=== PATIENT | male | born 1960 | race Caucasian/White ===

== ENCOUNTER 2018-11-22 19:57 | Emergency (ER) | payer OTHER, MEDICAID ==
[~2018-11-22] VITALS: Ht 180.3 cm; Wt 85.7 kg
[2018-11-22 20:01] VITALS: BP_SYST 119
[2018-11-22] MEDS ORDERED: ONDANSETRON HCL 4 MG/2 ML VIAL IVP ONE (20:30)
[2018-11-22] MEDS ORDERED: MORPHINE 2 MG/ML INJ. SYRINGE IVP ONE (20:30)
[2018-11-22] MEDS ORDERED: VALP500S4 PO (21:03)
[2018-11-22] MEDS ORDERED: CLON0.5T12 PO (21:03)
[2018-11-22] MEDS ORDERED: DORZ10DR13 BOTH EYES (21:03)
[2018-11-22] MEDS ORDERED: BENZ1TAB8 PO (21:03)
[2018-11-22 21:05] LABS: CALCIUM 9.9 mg/dL (8.4-11.0); CREATININE 0.97 mg/dL (0.55-1.30); POTASSIUM 4.4 mmol/L (3.5-5.1)
[2018-11-22] MEDS ORDERED: OXYB5TAB11 PO (21:06)
[2018-11-22] MEDS ORDERED: TRI48 PO (21:06)
[2018-11-22] MEDS ORDERED: TAMS-11 PO (21:06)
[2018-11-22 21:10] LABS: PROTHROMBIN TIME 10.3 SECS (9.5-12.5)
[2018-11-22 21:11] LABS: ALBUMIN 2.8 g/dL (3.4-4.8); BASOPHILS % (AUTO) 0.4 % (0.0-2.0); EOSINOPHILS # (AUTO) 0.3 K/uL (0.0-0.4); EOSINOPHILS % (AUTO) 3.1 % (0.0-4.0); HEMATOCRIT 31.8 % (36-54); HEMOGLOBIN 10.9 g/dL (14.0-18.0); LYMPHOCYTES # (AUTO) 2.6 K/uL (1.0-5.5); LYMPHOCYTES % (AUTO) 29.8 % (20.5-51.5); MEAN CORPUSCULAR HEMOGLOBIN 30 pg (27-31); MEAN CORPUSCULAR HGB CONC 34 % (32-36); MEAN CORPUSCULAR VOLUME 87 fL (79.0-98.0); MONOCYTES # (AUTO) 0.8 K/uL (0.0-1.0); MONOCYTES % (AUTO) 9.4 % (1.7-9.3); NEUTROPHILS % (AUTO) 57.3 % (40.0-70.0); PLATELET COUNT (AUTO) 459 K/uL (130-430); RED BLOOD CELL COUNT(AUTO) 3.66 MIL/uL (4.2-6.2); RED CELL DISTRIBUTION WIDTH 15.5 % (9.0-15.0); TOTAL BILIRUBIN 0.2 mg/dL (0.0-1.0); WHITE BLOOD COUNT (AUTO) 8.7 K/uL (4.8-10.8)
[2018-11-22] MEDS ORDERED: CLOZ100T2 PO (21:14)
[2018-11-22] MEDS ORDERED: RANI-362 PO (21:14)
[2018-11-22] MEDS ORDERED: ASPI-1153 PO (21:14)
[2018-11-22] MEDS ORDERED: BUSP5TAB3 PO (21:14)
[2018-11-22] MEDS ORDERED: MULT-1189 PO (21:14)
[2018-11-22] MEDS ORDERED: OLAN5TAB26 PO (21:14)
[2018-11-22] MEDS ORDERED: LISI-209 PO (21:14)
[2018-11-22] MEDS ORDERED: LACT10SO6 PO (21:14)
[2018-11-22] MEDS ORDERED: LEVO150T PO (21:14)
[2018-11-23 00:10] VITALS: BP_SYST 119
== END 2018-11-23 00:10 | disposition home or self-care (01) ==
LOC: SED 19:57
DX: R22.42 Localized swelling, mass and lump, left lower limb (principal); Z79.899 Other long term (current) drug therapy
CPT/HCPCS: 36415; 71045; 73590; 73620; 80053; 82550; 83880; 84484; 85025; 85610; 85730; 93005; 93970; 96374; 96375; 99284; J2270; J2405

== ENCOUNTER 2019-04-26 21:25 | Inpatient (IN) | payer OTHER, MEDICAID ==
[~2019-04-26] VITALS: Ht 179.1 cm; Wt 92.1 kg
[~2019-04-26 21:25] MED LIST: ASPI-1153 PO; BENZ1TAB8 PO; BUSP5TAB3 PO; CLON0.5T12 PO; CLOZ100T2 PO; DORZ10DR13 BOTH EYES; LACT10SO6 PO; LEVO150T PO; LISI-209 PO; MULT-1189 PO; OLAN5TAB26 PO; OXYB5TAB11 PO; RANI-362 PO; TAMS-11 PO; TRI48 PO; VALP500S4 PO
[2019-04-26 21:30] VITALS: BP_SYST 130
[2019-04-26 22:33] LABS: CALCIUM 9.2 mg/dL (8.4-11.0); CREATININE 1.32 mg/dL (0.55-1.30); POTASSIUM 4.6 mmol/L (3.5-5.1)
[2019-04-26 22:36] LABS: BASOPHILS % (AUTO) 0.7 % (0.0-2.0); EOSINOPHILS # (AUTO) 0.3 K/uL (0.0-0.4); EOSINOPHILS % (AUTO) 4.8 % (0.0-4.0); HEMATOCRIT 27.9 % (36-54); HEMOGLOBIN 9.1 g/dL (14.0-18.0); LYMPHOCYTES % (AUTO) 29.5 % (20.5-51.5); MEAN CORPUSCULAR HEMOGLOBIN 27 pg (27-31); MEAN CORPUSCULAR HGB CONC 33 % (32-36); MEAN CORPUSCULAR VOLUME 83 fL (79.0-98.0); MONOCYTES # (AUTO) 0.7 K/uL (0.0-1.0); NEUTROPHILS # (AUTO) 3.7 K/uL (1.8-7.7); PLATELET COUNT (AUTO) 375 K/uL (130-430); RED BLOOD CELL COUNT(AUTO) 3.37 MIL/uL (4.2-6.2); WHITE BLOOD COUNT (AUTO) 6.8 K/uL (4.8-10.8)
[2019-04-26 22:38] LABS: INR 1.1 (0.80-1.20)
[2019-04-26 22:44] LABS: ALBUMIN 3.1 g/dL (3.4-4.8); TOTAL BILIRUBIN 0.2 mg/dL (0.0-1.0)
[2019-04-27] MEDS ORDERED: ACETAMINOPHEN 500 MG TABLET PO ONE (01:00)
[2019-04-27] MEDS: PANTOPRAZOLE SODIUM 40 MG TAB PO SCH ×2 (05:21→08:54)
[2019-04-27] MEDS: FUROSEMIDE 20 MG/2 ML VIAL IVP SCH ×3 (05:22→21:06)
[2019-04-27 06:22] VITALS: BP_SYST 127
[2019-04-27 07:59] VITALS: BP_SYST 120
[2019-04-27] MEDS: cefTRIAXone 1 GM in D5W 50 ML IV SCH (08:53)
[2019-04-27 12:38] VITALS: BP_SYST 115
[2019-04-27] MEDS ORDERED: OXYBUTYNIN CHLORIDE 5 MG TABLET PO ONE (13:30)
[2019-04-27] MEDS ORDERED: ASPIRIN 81 MG TABLET(ECOTRIN) PO ONE (13:30)
[2019-04-27] MEDS ORDERED: HYDROcodone/ACETAMIN 5-325 MG TAB (NORCO/ VICODIN) PO PRN (13:30)
[2019-04-27] MEDS ORDERED: busPIRone HCL 5 MG TABLET PO PRN (13:30)
[2019-04-27] MEDS ORDERED: LEVOTHYROXINE SODIUM 0.15 MG TABLET PO ONE (13:30)
[2019-04-27] MEDS ORDERED: NON-FORMULARY MEDICATION (Ranitidine Hcl (Acid Reducer 150) 1 TAB) PO SCH (13:30)
[2019-04-27] MEDS ORDERED: FAMOTIDINE 20 MG TABLET PO ONE (14:15)
[2019-04-27] MEDS ORDERED: LISINOPRIL 5 MG TABLET PO ONE (14:19)
[2019-04-27] MEDS: HYDROcodone/ACETAMIN 5-325 MG TAB (NORCO/ VICODIN) PO PRN (14:43)
[2019-04-27 17:35] VITALS: BP_SYST 127
[2019-04-27] MEDS ORDERED: MAGNESIUM CITRATE 300 ML ORAL SOLUTION PO ONE (19:00)
[2019-04-27 20:00] VITALS: BP_SYST 135
[2019-04-27] MEDS ORDERED: BISACODYL 5 MG TABLET.DR (DULCOLAX) PO ONE (20:00)
[2019-04-27] MEDS ORDERED: GOLYTELY / COLYTE SOLUTION 4 LITERS PO ONE (20:00)
[2019-04-27] MEDS: CLOZARIL 100 MG PO SCH (21:00)
[2019-04-27] MEDS ORDERED: CLOZAPINE 400 MG PO SCH (21:00)
[2019-04-27] MEDS ORDERED: OLANZapine 5 MG TABLET PO SCH (21:00)
[2019-04-27] MEDS: FENOFIBRATE NANOCRYSTALLIZED 48 MG TABLET (TRICOR) PO SCH (21:04)
[2019-04-27] MEDS: DIVALPROEX SODIUM 500 MG TABLET( DEPAKOTE) PO SCH (21:04)
[2019-04-27] MEDS: BENZTROPINE MESYLATE 1 MG TABLET PO SCH (21:05)
[2019-04-27] MEDS: TAMSULOSIN HCL 0.4 MG CAP PO SCH (21:05)
[2019-04-27] MEDS: clonazePAM 0.5 MG TABLET PO SCH (21:05)
[2019-04-27] MEDS: DORZOLAMIDE HCL/TIMOLOL MAL. 10 ML EYE DROPS (COSOPT) BOTH EYES SCH (21:06)
[2019-04-28 03:34] VITALS: BP_SYST 121
[2019-04-28] MEDS: LEVOTHYROXINE SODIUM 0.15 MG TABLET PO SCH (06:25)
[2019-04-28 07:16] LABS: BASOPHILS % (AUTO) 0.4 % (0.0-2.0); EOSINOPHILS # (AUTO) 0.2 K/uL (0.0-0.4); EOSINOPHILS % (AUTO) 2.2 % (0.0-4.0); HEMATOCRIT 30.9 % (36-54); LYMPHOCYTES # (AUTO) 1.6 K/uL (1.0-5.5); LYMPHOCYTES % (AUTO) 17.2 % (20.5-51.5); MEAN CORPUSCULAR HEMOGLOBIN 27 pg (27-31); MEAN CORPUSCULAR HGB CONC 33 % (32-36); MEAN CORPUSCULAR VOLUME 82 fL (79.0-98.0); MONOCYTES % (AUTO) 11.2 % (1.7-9.3); NEUTROPHILS # (AUTO) 6.3 K/uL (1.8-7.7); PLATELET COUNT (AUTO) 549 K/uL (130-430); RED BLOOD CELL COUNT(AUTO) 3.79 MIL/uL (4.2-6.2); RED CELL DISTRIBUTION WIDTH 15.4 % (9.0-15.0); WHITE BLOOD COUNT (AUTO) 9.1 K/uL (4.8-10.8)
[2019-04-28 07:27] LABS: PROTHROMBIN TIME 10.4 SECS (9.5-12.5)
[2019-04-28 07:44] LABS: ALBUMIN 3.1 g/dL (3.4-4.8); CALCIUM 9.2 mg/dL (8.4-11.0); CREATININE 1.06 mg/dL (0.55-1.30); POTASSIUM 4.7 mmol/L (3.5-5.1); TOTAL BILIRUBIN 0.3 mg/dL (0.0-1.0)
[2019-04-28 08:00] VITALS: BP_SYST 134
[2019-04-28] MEDS ORDERED: SIMETHICONE 40 MG/0.6 ML ML ONE (08:20)
[2019-04-28] MEDS: MEPERIDINE HCL/PF 100 MG/ML AMP ONE ×2 (08:21→09:47)
[2019-04-28] MEDS: MIDAZOLAM HCL 5 MG/5 ML VIAL ONE ×6 (08:21→10:06)
[2019-04-28] MEDS: cefTRIAXone 1 GM in D5W 50 ML IV SCH (08:48)
[2019-04-28] MEDS: DORZOLAMIDE HCL/TIMOLOL MAL. 10 ML EYE DROPS (COSOPT) BOTH EYES SCH ×2 (08:48→22:04)
[2019-04-28] MEDS: FUROSEMIDE 20 MG/2 ML VIAL IVP SCH (08:49)
[2019-04-28] MEDS: BENZTROPINE MESYLATE 1 MG TABLET PO SCH ×2 (09:00→22:00)
[2019-04-28] MEDS: FAMOTIDINE 20 MG TABLET PO SCH (09:00)
[2019-04-28] MEDS: LISINOPRIL 5 MG TABLET PO SCH (09:00)
[2019-04-28] MEDS: MULTIVITS,CA,MINERALS/IRON/FA 1 TABLET PO SCH (09:00)
[2019-04-28] MEDS: LACTULOSE 20 GM/30 ML UDC PO SCH (09:00)
[2019-04-28] MEDS: PANTOPRAZOLE SODIUM 40 MG TAB PO SCH (09:00)
[2019-04-28] MEDS: OXYBUTYNIN CHLORIDE 5 MG TABLET PO SCH (09:00)
[2019-04-28] MEDS: clonazePAM 0.5 MG TABLET PO SCH ×2 (09:00→22:00)
[2019-04-28] MEDS: DIVALPROEX SODIUM 500 MG TABLET( DEPAKOTE) PO SCH ×2 (09:00→21:59)
[2019-04-28] MEDS: ASPIRIN 81 MG TABLET(ECOTRIN) PO SCH (09:00)
[2019-04-28 12:00] VITALS: BP_SYST 124
[2019-04-28] MEDS: HYDROcodone/ACETAMIN 5-325 MG TAB (NORCO/ VICODIN) PO PRN (15:51)
[2019-04-28 16:00] VITALS: BP_SYST 125
[2019-04-28] MEDS ORDERED: BISACODYL 5 MG TABLET.DR (DULCOLAX) PO ONE (17:00)
[2019-04-28] MEDS ORDERED: GOLYTELY / COLYTE SOLUTION 4 LITERS PO ONE (18:00)
[2019-04-28 20:00] VITALS: BP_SYST 148
[2019-04-28] MEDS: CLOZARIL 100 MG PO SCH (21:00)
[2019-04-28] MEDS: TAMSULOSIN HCL 0.4 MG CAP PO SCH (21:59)
[2019-04-28] MEDS: FENOFIBRATE NANOCRYSTALLIZED 48 MG TABLET (TRICOR) PO SCH (21:59)
[2019-04-28] MEDS: OLANZapine 5 MG TABLET PO SCH (22:00)
[2019-04-29] MEDS: HYDROcodone/ACETAMIN 5-325 MG TAB (NORCO/ VICODIN) PO PRN ×2 (00:14→16:14)
[2019-04-29 00:33] VITALS: BP_SYST 138
[2019-04-29] MEDS: LEVOTHYROXINE SODIUM 0.15 MG TABLET PO SCH (06:16)
[2019-04-29 07:12] LABS: BASOPHILS % (AUTO) 0.5 % (0.0-2.0); EOSINOPHILS # (AUTO) 0.4 K/uL (0.0-0.4); EOSINOPHILS % (AUTO) 4.4 % (0.0-4.0); HEMATOCRIT 30.1 % (36-54); HEMOGLOBIN 9.6 g/dL (14.0-18.0); LYMPHOCYTES # (AUTO) 2.3 K/uL (1.0-5.5); LYMPHOCYTES % (AUTO) 26.4 % (20.5-51.5); MEAN CORPUSCULAR HEMOGLOBIN 26 pg (27-31); MEAN CORPUSCULAR HGB CONC 32 % (32-36); MEAN CORPUSCULAR VOLUME 82 fL (79.0-98.0); MONOCYTES # (AUTO) 1.3 K/uL (0.0-1.0); MONOCYTES % (AUTO) 15.1 % (1.7-9.3); NEUTROPHILS # (AUTO) 4.7 K/uL (1.8-7.7); NEUTROPHILS % (AUTO) 53.6 % (40.0-70.0); PLATELET COUNT (AUTO) 479 K/uL (130-430); RED BLOOD CELL COUNT(AUTO) 3.68 MIL/uL (4.2-6.2); RED CELL DISTRIBUTION WIDTH 15.7 % (9.0-15.0); WHITE BLOOD COUNT (AUTO) 8.7 K/uL (4.8-10.8)
[2019-04-29 07:21] LABS: CALCIUM 8.9 mg/dL (8.4-11.0); CREATININE 0.95 mg/dL (0.55-1.30); POTASSIUM 3.8 mmol/L (3.5-5.1)
[2019-04-29 08:00] VITALS: BP_SYST 135
[2019-04-29] MEDS: OXYBUTYNIN CHLORIDE 5 MG TABLET PO SCH (08:10)
[2019-04-29] MEDS: DIVALPROEX SODIUM 500 MG TABLET( DEPAKOTE) PO SCH ×2 (08:10→20:04)
[2019-04-29] MEDS: BENZTROPINE MESYLATE 1 MG TABLET PO SCH ×2 (08:10→20:04)
[2019-04-29] MEDS: LACTULOSE 20 GM/30 ML UDC PO SCH (08:10)
[2019-04-29] MEDS: MULTIVITS,CA,MINERALS/IRON/FA 1 TABLET PO SCH (08:10)
[2019-04-29] MEDS: clonazePAM 0.5 MG TABLET PO SCH ×2 (08:10→20:04)
[2019-04-29] MEDS: DORZOLAMIDE HCL/TIMOLOL MAL. 10 ML EYE DROPS (COSOPT) BOTH EYES SCH ×2 (08:10→20:03)
[2019-04-29] MEDS: PANTOPRAZOLE SODIUM 40 MG TAB PO SCH (08:10)
[2019-04-29] MEDS: FAMOTIDINE 20 MG TABLET PO SCH (08:10)
[2019-04-29] MEDS: ASPIRIN 81 MG TABLET(ECOTRIN) PO SCH (08:10)
[2019-04-29] MEDS: LISINOPRIL 5 MG TABLET PO SCH (08:11)
[2019-04-29] MEDS: cefTRIAXone 1 GM in D5W 50 ML IV SCH (08:11)
[2019-04-29 12:00] VITALS: BP_SYST 117
[2019-04-29 16:00] VITALS: BP_SYST 131
[2019-04-29 20:00] VITALS: BP_SYST 140
[2019-04-29] MEDS: FENOFIBRATE NANOCRYSTALLIZED 48 MG TABLET (TRICOR) PO SCH (20:03)
[2019-04-29] MEDS: OLANZapine 5 MG TABLET PO SCH (20:04)
[2019-04-29] MEDS: TAMSULOSIN HCL 0.4 MG CAP PO SCH (20:04)
[2019-04-29] MEDS: CLOZARIL 100 MG PO SCH (21:00)
[2019-04-30 00:41] VITALS: BP_SYST 133
[2019-04-30] MEDS: HYDROcodone/ACETAMIN 5-325 MG TAB (NORCO/ VICODIN) PO PRN ×2 (03:37→17:24)
[2019-04-30] MEDS: LEVOTHYROXINE SODIUM 0.15 MG TABLET PO SCH (06:14)
[2019-04-30 08:00] VITALS: BP_SYST 127
[2019-04-30] MEDS: DORZOLAMIDE HCL/TIMOLOL MAL. 10 ML EYE DROPS (COSOPT) BOTH EYES SCH ×2 (08:15→20:45)
[2019-04-30] MEDS: LACTULOSE 20 GM/30 ML UDC PO SCH (08:15)
[2019-04-30] MEDS: cefTRIAXone 1 GM in D5W 50 ML IV SCH (08:15)
[2019-04-30] MEDS: ASPIRIN 81 MG TABLET(ECOTRIN) PO SCH (08:16)
[2019-04-30] MEDS: MULTIVITS,CA,MINERALS/IRON/FA 1 TABLET PO SCH (08:16)
[2019-04-30] MEDS: clonazePAM 0.5 MG TABLET PO SCH ×2 (08:16→20:47)
[2019-04-30] MEDS: DIVALPROEX SODIUM 500 MG TABLET( DEPAKOTE) PO SCH ×2 (08:16→20:47)
[2019-04-30] MEDS: BENZTROPINE MESYLATE 1 MG TABLET PO SCH ×2 (08:16→20:46)
[2019-04-30] MEDS: OXYBUTYNIN CHLORIDE 5 MG TABLET PO SCH (08:16)
[2019-04-30] MEDS: FAMOTIDINE 20 MG TABLET PO SCH (08:16)
[2019-04-30] MEDS: PANTOPRAZOLE SODIUM 40 MG TAB PO SCH (08:16)
[2019-04-30] MEDS: LISINOPRIL 5 MG TABLET PO SCH (08:16)
[2019-04-30 12:25] VITALS: BP_SYST 111
[2019-04-30 16:17] VITALS: BP_SYST 101
[2019-04-30 20:00] VITALS: BP_SYST 109
[2019-04-30] MEDS: FENOFIBRATE NANOCRYSTALLIZED 48 MG TABLET (TRICOR) PO SCH (20:47)
[2019-04-30] MEDS: OLANZapine 5 MG TABLET PO SCH (20:47)
[2019-04-30] MEDS: TAMSULOSIN HCL 0.4 MG CAP PO SCH (20:47)
[2019-04-30] MEDS: CLOZARIL 100 MG PO SCH (21:00)
[2019-05-01 00:23] VITALS: BP_SYST 109
[2019-05-01] MEDS: HYDROcodone/ACETAMIN 5-325 MG TAB (NORCO/ VICODIN) PO PRN (01:12)
[2019-05-01] MEDS: LEVOTHYROXINE SODIUM 0.15 MG TABLET PO SCH (06:48)
[2019-05-01 08:07] VITALS: BP_SYST 122
[2019-05-01] MEDS: cefTRIAXone 1 GM in D5W 50 ML IV SCH (08:45)
[2019-05-01] MEDS: DIVALPROEX SODIUM 500 MG TABLET( DEPAKOTE) PO SCH (08:46)
[2019-05-01] MEDS: LACTULOSE 20 GM/30 ML UDC PO SCH (08:46)
[2019-05-01] MEDS: ASPIRIN 81 MG TABLET(ECOTRIN) PO SCH (08:46)
[2019-05-01] MEDS: BENZTROPINE MESYLATE 1 MG TABLET PO SCH (08:47)
[2019-05-01] MEDS: FAMOTIDINE 20 MG TABLET PO SCH (08:47)
[2019-05-01] MEDS: MULTIVITS,CA,MINERALS/IRON/FA 1 TABLET PO SCH (08:47)
[2019-05-01] MEDS: PANTOPRAZOLE SODIUM 40 MG TAB PO SCH (08:47)
[2019-05-01] MEDS: clonazePAM 0.5 MG TABLET PO SCH (08:47)
[2019-05-01] MEDS: OXYBUTYNIN CHLORIDE 5 MG TABLET PO SCH (08:48)
[2019-05-01] MEDS: LISINOPRIL 5 MG TABLET PO SCH (08:48)
[2019-05-01] MEDS: DORZOLAMIDE HCL/TIMOLOL MAL. 10 ML EYE DROPS (COSOPT) BOTH EYES SCH (08:48)
[2019-05-01 12:00] VITALS: BP_SYST 123
== END 2019-05-01 15:10 | DRG 603 ==
LOC: SED 21:25 → STU 04-27 02:32
PROVIDERS: ADMIT Internal Medicine Infectious Disease; ATTEND Internal Medicine Infectious Disease
PROC: 0DB58ZX Excision of Esophagus, Via Natural or Artificial Opening Endoscopic, Diagnostic (ICD-10-PCS; 2019-04-28)
PROC: 0DJD8ZZ Inspection of Lower Intestinal Tract, Via Natural or Artificial Opening Endoscopic (ICD-10-PCS; 2019-04-28)
PROC: 0DB98ZX Excision of Duodenum, Via Natural or Artificial Opening Endoscopic, Diagnostic (ICD-10-PCS; principal; 2019-04-28 10:35)
PROC: 0DB78ZX Excision of Stomach, Pylorus, Via Natural or Artificial Opening Endoscopic, Diagnostic (ICD-10-PCS; 2019-04-28 10:35)
DX: L03.115 Cellulitis of right lower limb (principal); K22.10 Ulcer of esophagus without bleeding; K74.60 Unspecified cirrhosis of liver; I11.0 Hypertensive heart disease with heart failure; D64.9 Anemia, unspecified; E03.9 Hypothyroidism, unspecified; E78.5 Hyperlipidemia, unspecified; F25.9 Schizoaffective disorder, unspecified; F32.9 Major depressive disorder, single episode, unspecified; F41.9 Anxiety disorder, unspecified; G40.909 Epilepsy, unspecified, not intractable, without status epilepticus; G47.00 Insomnia, unspecified; K21.9 Gastro-esophageal reflux disease without esophagitis; K63.5 Polyp of colon; K44.9 Diaphragmatic hernia without obstruction or gangrene; K64.8 Other hemorrhoids; N40.0 Benign prostatic hyperplasia without lower urinary tract symptoms; Z79.899 Other long term (current) drug therapy; I50.9 Heart failure, unspecified
CPT/HCPCS: 36415; 43239; 45380; 71045; 74018; 74270-TC; 80048; 80053; 80164-TC; 83880; 84484; 85025; 85379; 85610-TC; 85730-TC; 87081; 88305; 88312; 88313; 93005; 93306; 93970; 99285; G0378; J0696; J1940; J2175; J2250; J7060